=== PATIENT | female | born 1955 | race Caucasian/White ===

== ENCOUNTER 2019-09-07 16:24 | Emergency (ER) | payer MEDICAID ==
[~2019-09-07] VITALS: Ht 152.4 cm; Wt 73.5 kg
[2019-09-07 16:41] VITALS: BP 147/68
--- NOTE | 2019-09-07 16:48 | NUR ---
PT AMBULATED WITH FAMILY TO BED 11.
--- NOTE | 2019-09-07 16:55 | NUR ---
C/O LAC WOUND AT FRONTAL AREA S/P DIZZINESS & FALL X TODAY. PT AOX4 , AFIBRILE , AMBULATORY WITH ASSISTANCE , DENIES N/V . MED HX: HTN
--- NOTE | 2019-09-07 17:01 | NUR ---
DR MENDOZA AT BEDSIDE EVALUATING PT.
--- NOTE | 2019-09-07 17:02 | NUR ---
PT LAC CLEANED WITH 4X4 GAUZE PADS AND NORMAL SALINE.
[2019-09-07] MEDS: KETOROLAC 60 MG/2 ML VIAL IM ONE (17:14)
--- NOTE | 2019-09-07 17:15 | NUR ---
PT AWAKE, ALERT, COMFORTABLE IN BED WITH FAMILY AT BEDSIDE , SIDE RAILS UP X1 AND LOCK.
[2019-09-07 17:50] VITALS: BP 147/68
--- NOTE | 2019-09-07 17:50 | NUR ---
Patient discharged with v/s stable. Written and verbal after care instructions given and explained. Patient verbalized understanding. Ambulatory with steady gait. All questions addressed prior to discharge. Advised to follow up with PMD.
== END 2019-09-07 17:58 | disposition home or self-care (01) ==
LOC: MED 16:24
DX: S01.81XA Laceration without foreign body of other part of head, initial encounter (principal); W18.39XA Other fall on same level, initial encounter; Y93.89 Activity, other specified; Y92.89 Other specified places as the place of occurrence of the external cause; Y99.8 Other external cause status; I10 Essential (primary) hypertension; Z88.5 Allergy status to narcotic agent; Z88.6 Allergy status to analgesic agent; Z98.890 Other specified postprocedural states
CPT/HCPCS: 12011; 96372; 99283; J1885

== ENCOUNTER 2019-11-07 09:08 | Emergency (ER) | payer OTHER ==
[~2019-11-07] VITALS: Ht 147.3 cm; Wt 72.6 kg
[2019-11-07 09:12] VITALS: BP 96/55
--- NOTE | 2019-11-07 09:20 | NUR ---
Pt C/O DIZZINESS AND RIGHT HIP PAIN S/P MECHANICAL FALL SINCE THIS MORNING. PT ALSO C/O DRY COUGH, NAUSEA, WATERY DIARRHEA X 4 EPISODES TODAY, INTERMITTENT SUBJECTIVE FEVER SINCE SUNDAY WITH HIGHEST TEMP 102. REPORTS 3 FAMILY MEMBERS HAVE COVID-19 INFECTION THAT SHE IS LIVING WITH. AAOX4 WITH EVEN AND STEADY GAIT; LUNGS CLEAR BL; HR EVEN AND REGULAR; PT DENIES ANY FEVER, CP, SOB, OR COUGH AT THIS TIME; PATIENT STATES PAIN OF 8/10 AT THIS TIME; VSS; PATIENT POSITIONED FOR COMFORT; HOB ELEVATED; BEDRAILS UP X1; BED DOWN. ER MD MADE AWARE OF PT STATUS. PT IS IN THE ISO ROOM AND ON MONITOR.
--- NOTE | 2019-11-07 10:11 | NUR ---
XRAY IS AT BEDSIDE.
[2019-11-07 10:14] LABS: APPEARANCE,URINE SL CLOUDY (CLEAR); BILIRUBIN,URINE 2+ (NEGATIVE); BLOOD, URINE TRACE-I (NEGATIVE); COLOR,URINE BROWN (YELLOW); LEUKOCYTE ESTERASE ,URINE NEGATIVE (NEGATIVE); NITRITE, URINE NEGATIVE (NEGATIVE); UGLUCOSE TRACE (NEGATIVE)
[2019-11-07 10:19] LABS: BASOPHILS % (AUTO) 0.2 % (0.0-2.0); HEMATOCRIT 39.9 % (36-48); HEMOGLOBIN 13.4 g/dL (12.0-16.0); LYMPHOCYTES # (AUTO) 1.6 K/uL (2.5-16.5); LYMPHOCYTES % (AUTO) 24.8 % (20.5-51.1); MEAN CORPUSCULAR HEMOGLOBIN 30 pg (27-31); MEAN CORPUSCULAR HGB CONC 34 g/dL (33-37); MEAN CORPUSCULAR VOLUME 90.5 fL (80-94); MONOCYTES # (AUTO) 0.5 K/uL (0.8-1.0); MONOCYTES % (AUTO) 7.8 % (1.7-9.3); NEUTROPHILS # (AUTO) 4.3 K/uL (1.8-7.7); NEUTROPHILS % (AUTO) 67.2 % (42.2-75.2); PLATELET COUNT (AUTO) 203 K/uL (140-450); RED BLOOD CELL COUNT(AUTO) 4.41 MIL/uL (4.20-5.40); RED CELL DISTRIBUTION WIDTH 13.5 % (11.6-13.7); WHITE BLOOD COUNT (AUTO) 6.4 K/uL (4.8-10.8)
[2019-11-07 10:25] LABS: HYALINE CASTS, URINE 0-10 /LPF (None Seen); URINE AMORPHOUS URATE 1+ /HPF (None Seen); WBC,URINE 0-5 /HPF (0-5)
[2019-11-07 10:33] LABS: ALBUMIN 3.4 g/dL (3.4-5.0); ANION GAP 14.3 (8-16); CARBON DIOXIDE 25.2 mmol/L (21-32); CREATININE 1.1 mg/dL (0.6-1.3); POTASSIUM 3.5 mmol/L (3.5-5.1); TOTAL BILIRUBIN 0.4 mg/dL (0.0-1.0)
[2019-11-07 11:37] VITALS: BP 103/57
--- NOTE | 2019-11-07 11:37 | NUR ---
Patient discharged with v/s stable. Written and verbal after care instructions given and explained. Patient alert, oriented and verbalized understanding of instructions. Ambulatory with steady gait. All questions addressed prior to discharge. ID band removed. Patient advised to follow up with PMD. Rx of Augumentin, Z-pack, and Zofran given. Patient educated on indication of medication including possible reaction and side effects. Opportunity to ask questions provided and answered.
[2019-11-12] MEDS ORDERED: AMLO10TA4 PO (11:52)
[2019-11-12] MEDS ORDERED: HYDR-3293 PO (11:52)
[2019-11-12] MEDS ORDERED: VITD400 PO (11:52)
[2019-11-12] MEDS ORDERED: BACL20TA4 PO (11:52)
[2019-11-12] MEDS ORDERED: DULO20EC PO (11:52)
[2019-11-12] MEDS ORDERED: AMOX500C25 PO (11:52)
[2019-11-12] MEDS ORDERED: ASPI81EC98 PO (11:52)
[2019-11-12] MEDS ORDERED: ATOR10TA PO (17:53)
[2019-11-12] MEDS ORDERED: DULO60EC PO (17:53)
== END 2019-11-07 11:37 | disposition home or self-care (01) ==
LOC: MED 09:08
DX: M25.551 Pain in right hip (principal); J18.8 Other pneumonia, unspecified organism; R10.9 Unspecified abdominal pain; R19.7 Diarrhea, unspecified; I10 Essential (primary) hypertension; Z88.5 Allergy status to narcotic agent; Z79.899 Other long term (current) drug therapy; Z20.828 Contact with and (suspected) exposure to other viral communicable diseases
CPT/HCPCS: 36415; 71045; 72170; 73502; 80053; 81001; 84484; 85025; 93005; 99285; Q0092